=== PATIENT | male | born 1955 | race Caucasian/White ===

== ENCOUNTER 2017-05-07 09:57 | Emergency (ER) | payer BC ==
[~2017-05-07] VITALS: Ht 165.1 cm; Wt 84.0 kg
[2017-05-07] MEDS ORDERED: ONDANSETRON HCL 4MG/2ML VIAL IV ONE (11:15)
[2017-05-07] MEDS ORDERED: MORPHINE SULFATE 4 MG/ML CPJ (NOT FOR IM USE) IV ONE (11:15)
[2017-05-07 11:35] LABS: HEMOGLOBIN. 15.3 g/dL (14.0-18.0); MEAN CORPUSCULAR HEMOGLOBIN 31.1 pg (28.0-32.0); MEAN CORPUSCULAR VOLUME 89.7 fL (80.0-94.0); PLATELET 219 x1000/uL (130-400); RED CELL DISTRIBUTION WIDTH 13.1 % (11.6-14.6)
[2017-05-07 11:44] LABS: CARBON DIOXIDE 28 mEq/L (21-32); CHLORIDE 105 mEq/L (98-107)
[2017-05-07 12:47] LABS: PLATELET ESTIMATE NORMAL
[2017-05-07] MEDS ORDERED: IOHEXOL-300 100 ML BOTTLE ONE (13:47)
[2017-05-07] MEDS ORDERED: SODIUM CHLORIDE 0.9% 10ML VIAL ONE (13:47)
[2017-05-07 17:30] VITALS: BP 129/71
== END 2017-05-07 18:43 | disposition home or self-care (01) ==
LOC: ER 10:43
DX: R10.12 Left upper quadrant pain (principal); E65 Localized adiposity; N28.1 Cyst of kidney, acquired; K76.89 Other specified diseases of liver; E78.00 Pure hypercholesterolemia, unspecified; I10 Essential (primary) hypertension; Z88.6 Allergy status to analgesic agent
CPT/HCPCS: 36415; 74177; 80053; 85007; 85027; 96374; 96375; 99285; A4216; J2270; J2405; J7030; Q9967; Z7610